=== PATIENT | male | born 1950 | race Hispanic/Latino ===

== ENCOUNTER 2022-03-04 12:47 | Emergency (ER) | payer OTHER ==
[2022-03-04 13:11] LABS: BASOPHILS % (AUTO) 0.4 % (0.0-5.0); EOSINOPHILS % (AUTO) 1.1 % (0.0-8.0); HEMATOCRIT 32.6 % (42-54); LYMPHOCYTES % (AUTO) 8.8 % (21.0-51.0); MEAN CORPUSCULAR HEMOGLOBIN 32.5 pg (27.0-33.0); MEAN CORPUSCULAR HGB CONC 33.7 g/dL (32.0-36.0); MEAN CORPUSCULAR VOLUME 96.4 fL (79-99); MONOCYTES % (AUTO) 2.2 % (3.0-13.0); NEUTROPHILS % (AUTO) 87.1 % (40.0-77.0); PLATELET COUNT (AUTO) 161 K/uL (130-400); RED BLOOD CELL COUNT(AUTO) 3.38 MIL/uL (4.50-6.20); RED CELL DISTRIBUTION WIDTH 16.8 % (11.0-15.5); WHITE BLOOD COUNT (AUTO) 4.6 K/uL (4.8-10.8)
[2022-03-04 13:20] LABS: POTASSIUM 3.5 mmol/L (3.5-5.1)
[2022-03-04 13:22] LABS: ALBUMIN 3.7 g/dL (3.5-5.0); BILIRUBIN,TOTAL 0.8 mg/dL (0.2-1.0); TOTAL PROTEIN, SERUM 6.8 g/dL (6.0-8.3)
[2022-03-04 13:40] LABS: INR 1.09 (0.85-1.15); PROTHROMBIN TIME 11.8 SEC (9.6-11.6)
[2022-03-04 13:41] LABS: PARTIAL THROMBOPLASTIN TIME 20.8 SEC (26.3-35.5)
[2022-03-04 13:50] LABS: APPEARANCE,URINE TURBID (CLEAR); BILIRUBIN,URINE NEGATIVE (NEGATIVE); COLOR,URINE YELLOW (YELLOW); GLUCOSE, URINE (UA) NEGATIVE (NEGATIVE); KETONES,URINE NEGATIVE (NEGATIVE); LEUKOCYTE ESTERASE ,URINE LARGE (NEGATIVE); NITRATE,URINE POSITIVE (NEGATIVE); OCCULT BLOOD,URINE SMALL (NEGATIVE); PH,URINE 6.5 (5.0-8.0); PROTEIN,URINE 30 mg/dL (NEGATIVE)
[2022-03-04 14:21] LABS: BACTERIA,URINE Moderate /HPF (None Seen); RBC,URINE 0-1 /HPF (0-1); SQUAMOUS EPITHELIAL CELL,UR Rare /HPF (0-2); WBC,URINE 26-50 /HPF (0-1)
[2022-03-04] MEDS ORDERED: CEFTRIAXONE 1G VIAL IVP ONE (15:00)
[2022-03-04] MEDS ORDERED: ONDANSETRON 4MG INJ IVP ONE (15:00)
[2022-03-04] MEDS ORDERED: ASPIRIN 81 MG EC TAB PO ONE (17:00)
[2022-03-04] MEDS ORDERED: IOHEXOL-350 75 ML VIAL IV ONE (17:05)
[2022-03-04 17:37] LABS: CHOLESTEROL 90 mg/dL (<200); HDL CHOLESTEROL 31 mg/dL (29-71); LDL DIRECT 52 mg/dL (0-99); TRIGLYCERIDES 74 mg/dL (30-200)
[2022-03-04] MEDS ORDERED: ENOXAPARIN SODIUM 80 MG/0.8 ML SQ SCH (18:00)
[2022-03-04 19:48] VITALS: BP 154/69
== END 2022-03-04 22:30 | disposition short-term general hospital (02) ==
LOC: EDH 12:47
DX: R41.82 Altered mental status, unspecified (principal); I63.9 Cerebral infarction, unspecified; E11.9 Type 2 diabetes mellitus without complications; I10 Essential (primary) hypertension; I25.10 Atherosclerotic heart disease of native coronary artery without angina pectoris; Z20.822 Contact with and (suspected) exposure to COVID-19; Z98.890 Other specified postprocedural states
CPT/HCPCS: 36415; 70450; 70496; 70498; 71045; 80053; 80061; 81001; 83605; 84484; 85025; 85610; 85651; 85730; 87077; 87088; 87186; 87635; 93005; 96372; 96374; 96375; 99285; C9803; J0696; J1650; J2405; Q9967